=== PATIENT | female | born 1995 | race Caucasian/White ===

== ENCOUNTER 2020-09-18 13:09 | Outpatient (CLI) | payer OTHER ==
--- NOTE | 2020-09-18 14:32 | RAD ---
RIGHT WRIST THREE VIEWS: 09/18/20 HISTORY: Pain in wrist. Joint spaces all appear fairly well preserved. I do not see any signs of fracture. No other bony find ings. IMPRESSION: Unremarkable right wrist. POS: [id number]
== END 2020-09-18 13:10 | disposition home or self-care (01) ==
LOC: BICRAD 13:09
PROVIDERS: ATTEND Family Medicine
DX: M25.531 Pain in right wrist (principal)